=== PATIENT | female | born 1990 | race Two or more races ===

== ENCOUNTER 2023-11-25 22:19 | Emergency (ER) | payer MEDICAID ==
[~2023-11-25] VITALS: Ht 162.6 cm; Wt 64.0 kg
[2023-11-25] MEDS: methylPREDNISolone SOD SUCC 125 MG/2 ML VL IM ONE (23:03)
[2023-11-25 23:31] VITALS: BP 116/74; PULSE 64; RESP 18; TEMP 98; O2SAT 97
[2023-11-25] MEDS ORDERED: PRED20TA2 PO (23:58)
== END 2023-11-26 00:04 | disposition home or self-care (01) ==
LOC: ER 22:19
DX: T78.40XA Allergy, unspecified, initial encounter (principal); X58.XXXA Exposure to other specified factors, initial encounter
CPT/HCPCS: 96372; 99283; J2919